=== PATIENT | male | born 2000 | race Caucasian/White ===

== ENCOUNTER 2022-11-25 12:00 | Inpatient (IN) | payer OTHER, BC ==
[~2022-11-25 12:00] MED LIST: Iopamidol-370 76% 500 ML MDV (1 ML CHARGE) ONE
[2022-11-25] MEDS ORDERED: Rocuronium Bromide 10 MG/ML (10ML VIAL) ONE (12:07)
[2022-11-25 12:21] LABS: #Eosinphils 0.1 thou/uL (0.0-0.7); #Monocytes 0.6 thou/uL (0.11-0.59); #Neutrophils 5.7 thou/uL (1.40-6.50); %Basophils 0.1 % (0.0-1.0); %Eosinophils 0.8 % (0.0-10.0); %Lymphocytes 17.5 % (21.0-51.0); %Monocytes 7.5 % (0.0-10.0); %Neutrophils 73.6 % (42.0-75.0); Hematocrit 40.9 % (42.0-52.0); Hemoglobin 14.4 g/dL (14.0-18.0); Mean Corpuscular HGB CONC 35.2 g/dL (32.0-36.0); Mean Corpuscular Hemoglobin 32.7 pg (27.0-31.0); Mean Platelet Volume 9.3 fL (7.4-10.4); Platelet Count 228 10x3/uL (130-400); RBC Distribution Width 11.9 % (11.5-14.5); White Blood Cell (WBC) Count 7.8 10x3/uL (4.8-10.8)
[2022-11-25] MEDS ORDERED: Ketamine 50 MG/ML (10ML VIAL) ONE (12:37)
[2022-11-25 12:43] LABS: INR-International Normal Ratio 1.1; PTT 27.6 sec (22.9-36.1); Prothrombin Time 14.9 sec (12.0-14.7)
[2022-11-25 12:46] LABS: Acetaminophen Less than 10 mcg/mL (10.0-30.0); Alcohol Less than 10.0 mg/dL (Less than 10); Salicylate Less than 8.0 mg/dL (15.0-30.0)
[2022-11-25 12:52] LABS: ALT (SGPT) 14 U/L (8-55); AST (SGOT) 28 U/L (5-34); Albumin 4.5 g/dL (3.5-5.0); Alkaline Phosphatase 50 U/L (40-110); Anion Gap 17 mmol/L (10-20); BUN (Urea Nitrogen) 10 mg/dL (8.9-20.6); Bilirubin, Total 0.7 mg/dL (0.2-1.2); Calc. Creatinine Clearance 0 mL/min (70-130); Calcium 9.2 mg/dL (7.8-10.44); Carbon Dioxide 17 mmol/L (22-29); Chloride 106 mmol/L (98-107); Estimated GFR 100; Globulin 2.3 g/dL (2.4-3.5); Glucose 150 mg/dL (70-105); Potassium 3.6 mmol/L (3.5-5.1); Protein, Total 6.8 g/dL (6.0-8.3); Sodium 136 mmol/L (136-145)
[2022-11-25] MEDS ORDERED: Boostrix 0.5 ML (Tdap) VIAL (>/=7 yrs of age) ONE (12:56)
[2022-11-25] MEDS ORDERED: CEFAZOLIN 2 GM VIAL ONE (12:56)
[2022-11-25] MEDS ORDERED: Glucagon 1 MG/ML KIT IM PRN (13:01)
[2022-11-25] MEDS ORDERED: Ondansetron PF 4 MG/2 ML Vial IVP PRN (13:01)
[2022-11-25] MEDS ORDERED: TETANUS, DIPHTHERIA TOX,ADULT (TDVAX) 0.5 ML VIAL IM ONE (13:01)
[2022-11-25] MEDS ORDERED: Dextrose 5% in Water 1,000 ML IV PRN (13:01)
[2022-11-25] MEDS ORDERED: Dextrose 50% Abboject 50 ML SYRINGE SLOW IVP PRN (13:01)
[2022-11-25] MEDS ORDERED: Ventilator Sedation Protocol 1 EACH FS SCH (13:01)
[2022-11-25 13:16] LABS: Amphetamine Not Detected (NotDetected); Barbiturates Screen Not Detected (NotDetected); Benzodiazepine Screen Not Detected (NotDetected); Cocaine Metabolite Screen Not Detected (NotDetected); Methadone Not Detected (NotDetected); Methamphetamine Not Detected (NotDetected); Opiate Screen Not Detected (NotDetected); Oxycodone Screen Not Detected (NotDetected); Phencyclidine (PCP) Not Detected (NotDetected); THC/Cannabinoid Screen Not Detected (NotDetected); Tricyclic Screen Not Detected (NotDetected)
[2022-11-25 13:22] LABS: Bacteria/HPF None Seen HPF (None Seen); Bilirubin Negative (Negative); Blood, Urine 2+ (Negative); CAUTI Indications for Culture Urological Procedure; Clarity Clear (Clear); Glucose, Urine (Dipstick) Normal (Negative); Ketone, Urine Negative (Negative); Leukocyte Negative Leu/uL (Negative); Nitrite Negative (Negative); Protein, Urine (Dipstick) 30 mg/dL (Neg-Trace); RBC/HPF 0-3 HPF (0-3); Squamous Epithelial None Seen HPF (0-3); Urobilinogen Normal mg/dL (Less than 2); WBC/HPF 0-3 HPF (0-3)
[2022-11-25 13:30] LABS: Urine Culture Reflex Yes Yes
[2022-11-25] MEDS ORDERED: Fentanyl BOLUS 250 ML IVPB PRN (13:30)
[2022-11-25] MEDS ORDERED: Propofol BOLUS 1,000 MG/100 ML VIAL IV PRN (13:30)
[2022-11-25] MEDS ORDERED: Morphine 2 MG/ML VIAL SLOW IVP PRN (13:30)
[2022-11-25] MEDS ORDERED: Fentanyl CADD 100 ML IV SCH (13:30)
[2022-11-25] MEDS ORDERED: Lorazepam 2 MG/ML VIAL SLOW IVP PRN (13:30)
[2022-11-25] MEDS ORDERED: DISCONTINUE PREVIOUS NARCOTIC PAIN MEDICATIONS AND BENZODIAZEPINES FS SCH (13:30)
[2022-11-25] MEDS ORDERED: fentaNYL 50 mcg/mL 1 mL Vial ONE ×2 (13:40)
[2022-11-25] MEDS ORDERED: Dexmedetomidine 400 MCG, Admixture Fee 1 EACH in Sodium Chloride 0.9% 96 ML IVPB SCH (13:45)
[2022-11-25] MEDS: Sodium Chloride 0.9% 1,000 ML IV SCH ×2 (14:00→20:20)
[2022-11-25] MEDS ORDERED: Ipratropium/Albuterol 3 ML NEB NEB PRN (14:09)
[2022-11-25] MEDS ORDERED: Fentanyl CADD 100 ML ONE (14:18)
[2022-11-25] MEDS ORDERED: levETIRAcetam 500 MG/5 ML VIAL SLOW IVP SCH (14:30)
[2022-11-25 15:20] LABS: Lactic Acid 1.2 mmol/L (0.5-2.2)
[2022-11-25] MEDS: Propofol 1,000 MG/100 ML VIAL IV PRN ×2 (15:53→20:20)
[2022-11-25] MEDS: Famotidine/PF 20 mg/2ml Vial SLOW IVP SCH (20:20)
[2022-11-25] MEDS: CEFAZOLIN 1 GM VIAL SLOW IVP SCH (22:58)
[2022-11-26] MEDS ORDERED: Sodium Chloride 0.9% 500 ML IVPB SCH (00:15)
[2022-11-26 03:55] LABS: Anion Gap 11 mmol/L (10-20); BUN (Urea Nitrogen) 9 mg/dL (8.9-20.6); Calc. Creatinine Clearance 157 mL/min (70-130); Carbon Dioxide 19 mmol/L (22-29); Chloride 112 mmol/L (98-107); Potassium 3.4 mmol/L (3.5-5.1); Sodium 139 mmol/L (136-145)
[2022-11-26 03:56] LABS: CK (CPK) 2372 U/L (30-200); Calcium 8.3 mg/dL (7.8-10.44); Estimated GFR 129; Glucose 84 mg/dL (70-105)
[2022-11-26 04:33] VITALS: TEMP 98.6
[2022-11-26] MEDS: Sodium Chloride 0.9% 1,000 ML IV SCH (06:08)
[2022-11-26] MEDS: CEFAZOLIN 1 GM VIAL SLOW IVP SCH (06:08)
[2022-11-26] MEDS: Propofol 1,000 MG/100 ML VIAL IV PRN (06:08)
[2022-11-26 08:07] LABS: Actual Bicarbonate (HCO3a) 19.9 mEq/L (22-28); Base Excess (BEa) -3.9 mEq/L (-2.0 to +3.0); Calcium, Ionized (arterial) 1.21 mmol/L (1.12-1.30); Carboxyhemoglobin (COHb) 0.2 gm% (0.0-3.0); Hematocrit-ABG 36 % (42.0-52.0); Hemoglobin (Hb) 12.1 g/dL (14.0-18.0); O2 Tension (PaO2), arterial 216.6 mmHg (80.0-100.0); Potassium - ABG Lab 3.53 mmol/L (3.70-5.30); pH, Arterial 7.411 (7.35-7.45)
[2022-11-26 08:10] LABS: Puncture Site LRA
[2022-11-26] MEDS: Famotidine/PF 20 mg/2ml Vial SLOW IVP SCH (08:27)
[2022-11-26] MEDS ORDERED: levETIRAcetam 500 MG/5 ML VIAL SLOW IVP SCH (09:00)
[2022-11-26] MEDS ORDERED: Lactated Ringer's 1,000 ML IV SCH (09:15)
[2022-11-26] MEDS ORDERED: Potassium Chloride 20 MEQ in Premix Bag 1 BAG IVPB SCH (09:15)
[2022-11-26 09:40] LABS: #Eosinphils 0.1 thou/uL (0.0-0.7); #Monocytes 0.8 thou/uL (0.11-0.59); #Neutrophils 3.7 thou/uL (1.40-6.50); %Basophils 0.2 % (0.0-1.0); %Eosinophils 1.3 % (0.0-10.0); %Lymphocytes 17.4 % (21.0-51.0); %Monocytes 15.1 % (0.0-10.0); Hematocrit 33.1 % (42.0-52.0); Hemoglobin 11.6 g/dL (14.0-18.0); Mean Corpuscular Volume 94.3 fl (78.0-98.0); Mean Platelet Volume 10.2 fL (7.4-10.4); Platelet Count 167 10x3/uL (130-400); RBC Distribution Width 12.2 % (11.5-14.5); Red Blood Cell (RBC) Count 3.51 mill/uL (4.70-6.10); White Blood Cell (WBC) Count 5.6 10x3/uL (4.8-10.8)
[2022-11-26] MEDS ORDERED: Potassium Chloride 20 MEQ TAB PO SCH (09:45)
[2022-11-26 09:47] VITALS: BMI 22.8
[2022-11-26 11:55] VITALS: BP 115/54
[2022-11-26] MEDS ORDERED: Scopolamine 1.5 mg/72 hour Patch TD SCH (12:15)
[2022-11-26] MEDS ORDERED: Acetaminophen 325 MG TAB PO PRN (12:15)
[2022-11-26] MEDS ORDERED: Ibuprofen 600 MG TAB PO PRN (12:16)
[2022-11-26] MEDS ORDERED: levETIRAcetam 500 MG TAB PO SCH (21:00)
[2022-11-26] MEDS ORDERED: Cephalexin 250 MG CAP PO SCH (21:00)
[2022-11-26] MEDS ORDERED: Famotidine 20 MG TAB PO SCH (21:00)
== END 2022-11-26 13:05 | disposition home or self-care (01) | DRG 963 ==
LOC: ERS 12:00 → CCU 13:01
PROVIDERS: ADMIT Surgery; ATTEND Surgery
PROC: 0BH17EZ Insertion of Endotracheal Airway into Trachea, Via Natural or Artificial Opening (ICD-10-PCS; principal; 2022-11-25)
PROC: 4A033R1 Measurement of Arterial Saturation, Peripheral, Percutaneous Approach (ICD-10-PCS; 2022-11-25)
PROC: 5A1935Z Respiratory Ventilation, Less than 24 Consecutive Hours (ICD-10-PCS; 2022-11-25)
DX: S06.9X9A Unspecified intracranial injury with loss of consciousness of unspecified duration, initial encounter (principal); J96.00 Acute respiratory failure, unspecified whether with hypoxia or hypercapnia; T79.6XXA Traumatic ischemia of muscle, initial encounter; E87.20 Acidosis, unspecified; S40.011A Contusion of right shoulder, initial encounter; W17.89XA Other fall from one level to another, initial encounter; T14.8XXA Other injury of unspecified body region, initial encounter
CPT/HCPCS: 36415; 36600; 70450; 71045; 71260; 72125; 72170; 74177; 80048; 80053; 80306; 80307; 81001; 82550; 82805; 83605; 84146; 85025; 85610; 85730; 86850; 86900; 86901; 87086; 90715; 93005; 93010; 94002; 94003; G0390; J0690; J1650; J1953; J2405; J2704; J3010; J3490; J7030; J7050; J7120; Q9967; S0028